=== PATIENT | female | born 1970 | race Caucasian/White ===

== ENCOUNTER → 2018-12-04 | Outpatient (CLI) | payer MEDICAID ==
[~2018-12-04] MED LIST: HYDR-3240 PO; IBUP200T49 PO
== END | disposition home or self-care (01) ==
LOC: CFH 10:50
PROVIDERS: ATTEND Genetic Counselor, MS
DX: Z12.31 Encounter for screening mammogram for malignant neoplasm of breast (principal)
CPT/HCPCS: 77063; 77067

== ENCOUNTER 2019-06-10 11:23 | Outpatient (CLI) | payer MEDICAID | END 2019-06-10 23:59 | disposition home or self-care (01) | LOC: CVU 11:23 | PROVIDERS: ATTEND Genetic Counselor, MS | DX: I83.812 Varicose veins of left lower extremity with pain (principal) | CPT/HCPCS: 93970 ==